=== PATIENT | male | born 1980 | race Caucasian/White ===

== ENCOUNTER 2021-05-01 15:47 | Inpatient (IN) ==
[2021-05-01] MEDS ORDERED: Ondansetron 4 MG/2 ML VIAL IVP STA (16:19)
[2021-05-01] MEDS ORDERED: 0.9 % Sodium Chloride 500 ML IVC STA (16:19)
[2021-05-01 17:04] LABS: INR 3.1; Prothrombin Time 34.5 Seconds (9.4-12.1)
[2021-05-01 17:06] LABS: Activated Partial Thrombo Time 29.7 Seconds (26.0-36.0)
[2021-05-01 17:19] LABS: Alanine Aminotransferase 68 Units/L (7-52); Albumin/Globulin Ratio 1.7 (1.1-2.2); Alkaline Phosphatase 87 Units/L (34-104); Aspartate Amino Transferase 110 Units/L (13-39); BUN/Creatinine Ratio 24 (6-26); Bilirubin,Direct 1.5 mg/dL (0.0-0.2); Bilirubin,Indirect 1.5 mg/dL (0.0-1.0); Blood Urea Nitrogen 33 mg/dL (6-20); Calcium 7.7 mg/dL (8.6-10.3); Carbon Dioxide 18 mEq/L (23-29); Chloride 92 mEq/L (98-107); Globulin 1.8 g/dL (2.4-3.5); Glucose 142 mg/dL (70-105); Lipase 63 Units/L (11-82); Osmolality,Calculated 286 (280-300); Potassium 3.3 mEq/L (3.5-5.1); Sodium 133 mEq/L (136-145); Total Protein 4.8 g/dL (6.4-8.9); eGFR For African Americans > 60 (> 60); eGFR For Non-African Americans 57 (> 60)
[2021-05-01 17:33] LABS: Bacteria,Urine Few per hpf (None-Few); Bilirubin,Urine Negative (Negative); Blood,Urine Negative (Negative); Clarity,Urine Turbid (Clear); Color,Urine Yellow (Yellow); Glucose,Urine (UA) 30 mg/dL (Normal); Hyaline Casts,Urine Many per lpf (None Seen); Ketones,Urine 10 mg/dL (Negative); Leukocyte Esterase,Urine Negative (Negative); Mucus,Urine Few per lpf (None-Few); Nitrite,Urine Negative (Negative); Protein,Urine 30 mg/dL (Neg-Trace); RBC,Urine 0-3 per hpf (0-3); Specific Gravity,Urine 1.018 (1.010-1.025); Squamous Epithelial Cell,Urine Few per hpf (None-Few); Urobilinogen,Urine Normal (Normal)
[2021-05-01 17:47] LABS: Troponin I < 0.03 ng/mL (< 0.04)
[2021-05-01] MEDS ORDERED: Magnesium Sulfate 1 GM/102 ML PIGGYBACK IVPB ONE (17:51)
[2021-05-01] MEDS ORDERED: Isovue-370 500 ML BOTTLE IVP ONE (17:52)
[2021-05-01 18:14] LABS: Basophils % 0.1 %; Eosinophils % 0.1 %; Immature Granulocytes % 1.5 % (0-4); Immature Platelets 10.1 % (1.1-6.1); Lymphocytes # 1.5 K/mcL (0.6-4.6); Mean Corpuscular HGB Conc 27.4 g/dL (31.6-35.5); Mean Corpuscular Volume 73.1 fL (83.0-100.0); Mean Platelet Volume 10.9 fL (9.4-12.4); Monocytes # 1.1 K/mcL (0.0-1.3); Monocytes % 11.2 %; Neutrophils # 7.1 K/mcL (1.6-8.9); Nucleated Red Blood Cells 1.1 /100 WBC (0); Platelet Count 128 K/mcL (140-400); Red Cell Distribution Width 20.3 % (11.5-14.5); Segmented Neutrophils % 72.1 %; White Blood Count 9.9 K/mcL (4.3-11.1)
[2021-05-01 18:28] LABS: Hematocrit 11.7 % (37.5-50.1); Hemoglobin 3.2 g/dL (12.9-16.9)
[2021-05-01 18:39] LABS: Anisocytosis 2+ (Not Present); Hypochromasia Present (Not Present); Platelet Estimate Slight Decrease (Normal); Poikilocytosis 3+ (Not Present)
[2021-05-01] MEDS ORDERED: cefTRIAXone 1,000 MG in Water for inj. (sterile) 10 ML IVP STA (19:22)
[2021-05-01] MEDS ORDERED: Naloxone 0.4 MG/ML INJ IVP PRN (19:33)
[2021-05-01] MEDS ORDERED: Ondansetron 4 MG/2 ML VIAL IVP PRN (19:33)
[2021-05-01] MEDS ORDERED: Pantoprazole 80 MG in 0.9 % Sodium Chloride 50 ML IVPB ONE (21:23)
[2021-05-01] MEDS: Calcium Gluconate 1gm/50mL 1 GM/50 ML BAG IVPB SCH ×2 (22:09→23:16)
[2021-05-01 22:27] LABS: Eosinophils % 0.1 %; Immature Granulocytes % 1.2 % (0-4); Lymphocytes # 1.9 K/mcL (0.6-4.6); Lymphocytes % 19.7 %; Mean Corpuscular HGB Conc 29.5 g/dL (31.6-35.5); Mean Corpuscular Hemoglobin 22.4 pg (28.0-33.3); Mean Corpuscular Volume 75.9 fL (83.0-100.0); Mean Platelet Volume 11.6 fL (9.4-12.4); Monocytes % 10.8 %; Neutrophils # 6.5 K/mcL (1.6-8.9); Nucleated Red Blood Cells 0.9 /100 WBC (0); Platelet Count 106 K/mcL (140-400); Red Blood Count 1.74 M/mcL (4.19-5.50); Red Cell Distribution Width 23.5 % (11.5-14.5); Segmented Neutrophils % 68.2 %; White Blood Count 9.5 K/mcL (4.3-11.1)
[2021-05-01 22:32] LABS: Hematocrit 13.2 % (37.5-50.1); Hemoglobin 3.9 g/dL (12.9-16.9)
[2021-05-01 22:35] LABS: Amphetamine Screen,Urine Negative ng/mL (Cutoff=1000); Barbiturate Screen,Urine Negative ng/mL (Cutoff=200); Benzodiazepines Screen,Urine Negative ng/mL (Cutoff=200); Cannabinoid Screen,Urine Negative ng/mL (Cutoff = 50); Cocaine Screen,Urine Negative ng/mL (Cutoff= 300); Opiate Screen,Urine Negative ng/mL (Cutoff=300); Phencyclidine Screen,Urine Negative ng/mL (Cutoff=25)
[2021-05-01 22:51] LABS: Polychromasia 1+ (Not Present)
[2021-05-01] MEDS: Piperacillin/Tazobactam 3.375 GM in 0.9 % Sodium Chloride Mini Bag 100 ML IVPB SCH (23:44)
[2021-05-01] MEDS ORDERED: *HR* LORazepam 2 MG/ML VIAL IVP PRN ×2 (23:49)
[2021-05-02 02:07] LABS: Basophils % 0.1 %; Eosinophils % 0.3 %; Hematocrit 16.9 % (37.5-50.1); Immature Granulocytes % 0.9 % (0-4); Immature Platelets 7.5 % (1.1-6.1); Lymphocytes # 1.4 K/mcL (0.6-4.6); Lymphocytes % 19.8 %; Mean Corpuscular HGB Conc 31.4 g/dL (31.6-35.5); Mean Corpuscular Hemoglobin 24.4 pg (28.0-33.3); Mean Corpuscular Volume 77.9 fL (83.0-100.0); Mean Platelet Volume 11.7 fL (9.4-12.4); Monocytes % 14.4 %; Neutrophils # 4.4 K/mcL (1.6-8.9); Nucleated Red Blood Cells 1.2 /100 WBC (0); Red Blood Count 2.17 M/mcL (4.19-5.50); Segmented Neutrophils % 64.5 %; White Blood Count 6.8 K/mcL (4.3-11.1)
[2021-05-02 02:08] LABS: Platelet Count 78 K/mcL (140-400)
[2021-05-02 02:11] LABS: Hemoglobin 5.3 g/dL (12.9-16.9)
[2021-05-02] MEDS ORDERED: Dexmedetomidine HCl 400 MCG/100 ML MLS IVC ONE (02:18)
[2021-05-02 02:27] LABS: Anisocytosis 2+ (Not Present); Platelet Estimate Decreased (Normal); Poikilocytosis 1+ (Not Present)
[2021-05-02] MEDS: Dexmedetomidine HCl 400 MCG/100 ML MLS IVC SCH ×3 (02:30→21:21)
[2021-05-02] MEDS ORDERED: 0.9 % Sodium Chloride 250 ML ONE ×3 (03:09→11:00)
[2021-05-02] MEDS ORDERED: Pantoprazole 40 MG VIAL IVP SCH (06:00)
[2021-05-02 06:17] LABS: Immature Reticulocyte % 20.7 % (11.0-38.0); Retculocyte # 0.07 M/mcL (0.05-0.10); Reticulocyte % 3.3 % (1.6-2.8)
[2021-05-02] MEDS ORDERED: 0.9 % Sodium Chloride 500 ML ONE ×2 (06:18→09:11)
[2021-05-02] MEDS ORDERED: 0.9 % Sodium Chloride 500 ML IVC ONE (06:30)
[2021-05-02 06:34] LABS: VBG Ionized Calcium 0.96 mmol/L (1.15-1.35)
[2021-05-02 06:38] LABS: INR 2.5; Prothrombin Time 27.7 Seconds (9.4-12.1)
[2021-05-02 06:42] LABS: Alanine Aminotransferase 93 Units/L (7-52); Albumin 2.3 g/dL (3.5-5.7); Albumin/Globulin Ratio 1.8 (1.1-2.2); Alkaline Phosphatase 65 Units/L (34-104); Aspartate Amino Transferase 220 Units/L (13-39); BUN/Creatinine Ratio 37 (6-26); Bilirubin,Total 2.7 mg/dL (0.3-1.0); Blood Urea Nitrogen 47 mg/dL (6-20); Calcium 6.4 mg/dL (8.6-10.3); Carbon Dioxide 28 mEq/L (23-29); Chloride 97 mEq/L (98-107); Cholesterol 56 mg/dL (< 200); Globulin 1.3 g/dL (2.4-3.5); Glucose 128 mg/dL (70-105); HDL Cholesterol 14 mg/dL (40-59); LDL Cholesterol,Calculated 32 mg/dL (< 100); Magnesium 1.6 mg/dL (1.6-2.6); Osmolality,Calculated 294 (280-300); Phosphorous 5.5 mg/dL (2.7-4.5); Potassium 3.5 mEq/L (3.5-5.1); Sodium 135 mEq/L (136-145); Total Protein 3.6 g/dL (6.4-8.9); Triglycerides 51 mg/dL (< 150); eGFR For African Americans > 60 (> 60); eGFR For Non-African Americans > 60 (> 60)
[2021-05-02 06:59] LABS: Ferritin < 8 ng/mL (20-250); Iron < 10 mcg/dL (65-175); Lactate Dehydrogenase 315 Units/L (140-271); Transferrin 221 mg/dL (203-362)
[2021-05-02 07:03] LABS: Folate 14.1 ng/mL (3.0-16.0)
[2021-05-02] MEDS: Calcium Gluconate 1gm/50mL 1 GM/50 ML BAG IVPB PRN ×2 (07:15→08:15)
[2021-05-02] MEDS ORDERED: Octreotide 400 MCG in 0.9 % Sodium Chloride 100 ML IVC SCH (07:45)
[2021-05-02] MEDS ORDERED: Pantoprazole 40 MG in 0.9 % Sodium Chloride Mini Bag 100 ML IVC SCH (07:45)
[2021-05-02 07:49] LABS: Hepatitis B Surface Antigen Nonreactive (Nonreactive)
[2021-05-02] MEDS: Piperacillin/Tazobactam 3.375 GM in 0.9 % Sodium Chloride Mini Bag 100 ML IVPB SCH (08:15)
[2021-05-02 08:18] LABS: Hepatitis A Antibody IgM Nonreactive (Nonreactive); Hepatitis B Core IgM Nonreactive (Nonreactive); Hepatitis C Virus Antibody Nonreactive (Nonreactive)
[2021-05-02] MEDS: Metoclopramide 20 MG in 0.9 % Sodium Chloride 50 ML IVPB SCH ×3 (08:45→22:42)
[2021-05-02 09:12] LABS: Basophils % 0.2 %; Eosinophils # 0.1 K/mcL (0.0-0.6); Eosinophils % 1.8 %; Hematocrit 20.2 % (37.5-50.1); Hemoglobin 6.5 g/dL (12.9-16.9); Immature Granulocytes % 0.4 % (0-4); Immature Platelets 8.5 % (1.1-6.1); Lymphocytes # 1.4 K/mcL (0.6-4.6); Lymphocytes % 30.6 %; Mean Corpuscular HGB Conc 32.2 g/dL (31.6-35.5); Mean Corpuscular Hemoglobin 25.5 pg (28.0-33.3); Mean Corpuscular Volume 79.2 fL (83.0-100.0); Monocytes # 0.7 K/mcL (0.0-1.3); Monocytes % 15.4 %; Neutrophils # 2.3 K/mcL (1.6-8.9); Red Blood Count 2.55 M/mcL (4.19-5.50); Red Cell Distribution Width 20.3 % (11.5-14.5); Segmented Neutrophils % 51.6 %; White Blood Count 4.5 K/mcL (4.3-11.1)
[2021-05-02 09:36] LABS: Platelet Count 62 K/mcL (140-400)
[2021-05-02] MEDS ORDERED: 0.9 % Sodium Chloride 250 ML IVC SCH (10:45)
[2021-05-02 11:04] LABS: VBG Ionized Calcium 1.03 mmol/L (1.15-1.35)
[2021-05-02] MEDS ORDERED: *HR* Propofol 200 MG/20 ML VIAL IVP ONE (11:13)
[2021-05-02] MEDS ORDERED: Lidocaine -MPF 2% 5 ML VIAL ONE (11:21)
[2021-05-02] MEDS ORDERED: *HR* Succinylcholine 200 MG/10 ML VIAL IVP ONE (11:36)
[2021-05-02] MEDS ORDERED: *HR* FentaNYL (PF) 100 MCG/2 ML VIAL IVP PRN (11:38)
[2021-05-02] MEDS ORDERED: Nitroglycerin 0.4 MG TAB.SUBL SL PRN (11:38)
[2021-05-02] MEDS ORDERED: Albuterol 2.5 MG/3 ML NEBULIZER IH PRN (11:38)
[2021-05-02] MEDS ORDERED: Naloxone 0.4 MG/ML INJ IVP PRN (11:38)
[2021-05-02] MEDS ORDERED: Ondansetron 4 MG/2 ML VIAL IVP PRN (11:38)
[2021-05-02 11:40] LABS: Alanine Aminotransferase 97 Units/L (7-52); Albumin 2.4 g/dL (3.5-5.7); Albumin/Globulin Ratio 1.8 (1.1-2.2); Alkaline Phosphatase 67 Units/L (34-104); Aspartate Amino Transferase 224 Units/L (13-39); BUN/Creatinine Ratio 43 (6-26); Bilirubin,Total 3.3 mg/dL (0.3-1.0); Blood Urea Nitrogen 47 mg/dL (6-20); Calcium 6.7 mg/dL (8.6-10.3); Carbon Dioxide 27 mEq/L (23-29); Chloride 100 mEq/L (98-107); Globulin 1.3 g/dL (2.4-3.5); Glucose 100 mg/dL (70-105); Osmolality,Calculated 292 (280-300); Potassium 3.6 mEq/L (3.5-5.1); Sodium 135 mEq/L (136-145); Total Protein 3.7 g/dL (6.4-8.9); eGFR For African Americans > 60 (> 60); eGFR For Non-African Americans > 60 (> 60)
[2021-05-02] MEDS: Calcium Gluconate 1gm/50mL 1 GM/50 ML BAG IVPB SCH ×4 (12:53→20:15)
[2021-05-02 14:46] LABS: Adenovirus Not Detected (Not Detect); Bordetella Pertussis Not Detected (Not Detect); Chlamydophila pneumoniae Not Detected (Not Detect); Coronavirus 229E Not Detected (Not Detect); Coronavirus HKU1 Not Detected (Not Detect); Coronavirus NL63 Not Detected (Not Detect); Coronavirus OC43 Not Detected (Not Detect); Human Metapneumovirus Not Detected (Not Detect); Human Rhinovirus/Enterovirus Not Detected (Not Detect); Influenza A Subtype 2009 H1 Not Detected (Not Detect); Influenza B Not Detected (Not Detect); Mycoplasma pneumoniae Not Detected (Not Detect); Parainfluenza Virus 1 Not Detected (Not Detect); Parainfluenza Virus 2 Not Detected (Not Detect); Parainfluenza Virus 3 Not Detected (Not Detect); Parainfluenza Virus 4 Not Detected (Not Detect); Respiratory Syncytial Virus Not Detected (Not Detect); SARS-CoV-2 Not Detected (Not Detect)
[2021-05-02] MEDS: Pantoprazole 40 MG VIAL IVP SCH (17:45)
[2021-05-02] MEDS ORDERED: Thiamine (B-1) 100 MG, Folic Acid 1 MG, MVI, adult with vitamin K 10 ML in 0.9 % Sodi... IVPB SCH (18:00)
[2021-05-02 18:06] LABS: Hemoglobin 6.8 g/dL (12.9-16.9)
[2021-05-02 18:08] LABS: Hematocrit 20.8 % (37.5-50.1); Immature Platelets 7.4 % (1.1-6.1); Mean Corpuscular HGB Conc 32.7 g/dL (31.6-35.5); Mean Corpuscular Volume 79.4 fL (83.0-100.0); Mean Platelet Volume 10.1 fL (9.4-12.4); Red Blood Count 2.62 M/mcL (4.19-5.50); Red Cell Distribution Width 19.5 % (11.5-14.5); White Blood Count 2.9 K/mcL (4.3-11.1)
[2021-05-02 18:14] LABS: VBG Ionized Calcium 1.02 mmol/L (1.15-1.35)
[2021-05-02 18:16] LABS: INR 1.6; Prothrombin Time 18.7 Seconds (9.4-12.1)
[2021-05-02 18:27] LABS: Alanine Aminotransferase 108 Units/L (7-52); Albumin 2.9 g/dL (3.5-5.7); Albumin/Globulin Ratio 1.9 (1.1-2.2); Alkaline Phosphatase 70 Units/L (34-104); Aspartate Amino Transferase 238 Units/L (13-39); BUN/Creatinine Ratio 56 (6-26); Bilirubin,Total 4.3 mg/dL (0.3-1.0); Blood Urea Nitrogen 45 mg/dL (6-20); Calcium 7.4 mg/dL (8.6-10.3); Carbon Dioxide 28 mEq/L (23-29); Chloride 99 mEq/L (98-107); Globulin 1.5 g/dL (2.4-3.5); Glucose 126 mg/dL (70-105); Magnesium 2.2 mg/dL (1.6-2.6); Osmolality,Calculated 293 (280-300); Phosphorous 3.6 mg/dL (2.7-4.5); Potassium 3.4 mEq/L (3.5-5.1); Sodium 135 mEq/L (136-145); Total Protein 4.4 g/dL (6.4-8.9); eGFR For African Americans > 60 (> 60); eGFR For Non-African Americans > 60 (> 60)
[2021-05-02 22:20] LABS: Hematocrit 21.7 % (37.5-50.1)
[2021-05-03 04:50] LABS: Hemoglobin 6.7 g/dL (12.9-16.9); Nucleated Red Blood Cells 1.7 /100 WBC (0)
[2021-05-03 04:52] LABS: Eosinophils % 0.2 %; Hematocrit 20.7 % (37.5-50.1); Immature Granulocytes % 0.6 % (0-4); Immature Platelets 5.7 % (1.1-6.1); Lymphocytes # 0.6 K/mcL (0.6-4.6); Lymphocytes % 13.1 %; Mean Corpuscular HGB Conc 32.4 g/dL (31.6-35.5); Mean Corpuscular Hemoglobin 25.4 pg (28.0-33.3); Mean Corpuscular Volume 78.4 fL (83.0-100.0); Mean Platelet Volume 10.3 fL (9.4-12.4); Monocytes # 0.5 K/mcL (0.0-1.3); Monocytes % 11.4 %; Neutrophils # 3.5 K/mcL (1.6-8.9); Red Blood Count 2.64 M/mcL (4.19-5.50); Red Cell Distribution Width 19.4 % (11.5-14.5); Segmented Neutrophils % 74.7 %; White Blood Count 4.7 K/mcL (4.3-11.1)
[2021-05-03 04:53] LABS: Platelet Count 78 K/mcL (140-400)
[2021-05-03 05:11] LABS: BUN/Creatinine Ratio 50 (6-26); Blood Urea Nitrogen 30 mg/dL (6-20); Calcium 7.4 mg/dL (8.6-10.3); Carbon Dioxide 27 mEq/L (23-29); Chloride 100 mEq/L (98-107); Glucose 104 mg/dL (70-105); Osmolality,Calculated 282 (280-300); Potassium 3.5 mEq/L (3.5-5.1); Sodium 133 mEq/L (136-145); eGFR For African Americans > 60 (> 60); eGFR For Non-African Americans > 60 (> 60)
[2021-05-03] MEDS ORDERED: SODIUM CHLORIDE/NAHCO3/KCL/PEG 4,000 ML SOLN.RECON PO ONE (05:42)
[2021-05-03] MEDS: Dexmedetomidine HCl 400 MCG/100 ML MLS IVC SCH (06:51)
[2021-05-03] MEDS: Pantoprazole 40 MG VIAL IVP SCH ×2 (06:57→16:38)
[2021-05-03] MEDS ORDERED: Calcium Gluconate 1gm/50mL 1 GM/50 ML BAG IVPB ONE (07:43)
[2021-05-03] MEDS: Metoclopramide 20 MG in 0.9 % Sodium Chloride 50 ML IVPB SCH (08:04)
[2021-05-03] MEDS ORDERED: cefTRIAXone 1,000 MG in Water for inj. (sterile) 10 ML IVP SCH (09:00)
[2021-05-03 12:13] LABS: Hemoglobin 8.1 g/dL (12.9-16.9)
[2021-05-03] MEDS ORDERED: 0.9 % Sodium Chloride 250 ML IVC SCH (13:10)
[2021-05-03] MEDS ORDERED: *HR* LORazepam 2 MG/ML VIAL IVP PRN ×2 (13:10)
[2021-05-03] MEDS ORDERED: Naloxone 0.4 MG/ML INJ IVP PRN (13:10)
[2021-05-03] MEDS ORDERED: Nitroglycerin 0.4 MG TAB.SUBL SL PRN (13:10)
[2021-05-03] MEDS ORDERED: Thiamine (B-1) 100 MG, Folic Acid 1 MG, MVI, adult with vitamin K 10 ML in 0.9 % Sodi... IVPB SCH (18:00)
[2021-05-04] MEDS: Pantoprazole 40 MG VIAL IVP SCH (05:22)
[2021-05-04] MEDS ORDERED: Nitroglycerin 0.4 MG TAB.SUBL SL PRN ×3 (08:34→13:34)
[2021-05-04] MEDS ORDERED: Naloxone 0.4 MG/ML INJ IVP PRN ×3 (08:34→13:34)
[2021-05-04] MEDS ORDERED: 0.9 % Sodium Chloride 250 ML IVC SCH ×2 (08:34→11:53)
[2021-05-04] MEDS ORDERED: *HR* LORazepam 2 MG/ML VIAL IVP PRN ×6 (08:34→13:34)
[2021-05-04] MEDS ORDERED: traZODone 50 MG TABLET PO PRN ×3 (08:34→13:34)
[2021-05-04] MEDS ORDERED: Lidocaine -MPF 2% 5 ML VIAL ONE (08:58)
[2021-05-04] MEDS ORDERED: Nicotine 21 MG PATCH.TD24 TD SCH ×2 (09:00)
[2021-05-04] MEDS ORDERED: cefTRIAXone 1,000 MG in Water for inj. (sterile) 10 ML IVP SCH (09:00)
[2021-05-04 11:04] LABS: Eosinophils % 1.3 %; Hematocrit 23.6 % (37.5-50.1); Hemoglobin 7.6 g/dL (12.9-16.9); Immature Granulocytes % 0.3 % (0-4); Lymphocytes % 31.1 %; Mean Corpuscular HGB Conc 32.2 g/dL (31.6-35.5); Mean Corpuscular Hemoglobin 25.9 pg (28.0-33.3); Mean Corpuscular Volume 80.5 fL (83.0-100.0); Mean Platelet Volume 10.1 fL (9.4-12.4); Monocytes # 0.5 K/mcL (0.0-1.3); Monocytes % 16.4 %; Neutrophils # 1.6 K/mcL (1.6-8.9); Nucleated Red Blood Cells 1.6 /100 WBC (0); Red Blood Count 2.93 M/mcL (4.19-5.50); Red Cell Distribution Width 19.1 % (11.5-14.5); Segmented Neutrophils % 50.9 %; White Blood Count 3.1 K/mcL (4.3-11.1)
[2021-05-04 11:05] LABS: Platelet Count 66 K/mcL (140-400)
[2021-05-04 11:23] LABS: BUN/Creatinine Ratio 25 (6-26); Blood Urea Nitrogen 14 mg/dL (6-20); Calcium 7.1 mg/dL (8.6-10.3); Carbon Dioxide 27 mEq/L (23-29); Chloride 99 mEq/L (98-107); Glucose 91 mg/dL (70-105); Osmolality,Calculated 272 (280-300); Sodium 131 mEq/L (136-145); eGFR For African Americans > 60 (> 60); eGFR For Non-African Americans > 60 (> 60)
[2021-05-04 11:38] LABS: Platelet Estimate Decreased (Normal)
[2021-05-04 11:39] LABS: Anisocytosis 1+ (Not Present)
[2021-05-04] MEDS ORDERED: Calcium Gluconate 1gm/50mL 1 GM/50 ML BAG IVPB PRN (11:57)
[2021-05-04] MEDS ORDERED: cefTRIAXone 1,000 MG in Water for inj. (sterile) 10 ML IVP ONE ×2 (13:29→13:34)
[2021-05-04] MEDS ORDERED: Pantoprazole 40 MG VIAL IVP SCH ×2 (18:00)
[2021-05-04] MEDS ORDERED: Thiamine (B-1) 100 MG, Folic Acid 1 MG, MVI, adult with vitamin K 10 ML in 0.9 % Sodi... IVPB SCH ×2 (18:00)
[2021-05-05 05:42] LABS: Hematocrit 23.3 % (37.5-50.1); Hemoglobin 7.5 g/dL (12.9-16.9); Mean Corpuscular HGB Conc 32.2 g/dL (31.6-35.5); Mean Corpuscular Hemoglobin 25.7 pg (28.0-33.3); Mean Corpuscular Volume 79.8 fL (83.0-100.0); Mean Platelet Volume 9.5 fL (9.4-12.4); Red Blood Count 2.92 M/mcL (4.19-5.50); Red Cell Distribution Width 19.1 % (11.5-14.5); White Blood Count 2.5 K/mcL (4.3-11.1)
[2021-05-05 05:44] LABS: Platelet Count 59 K/mcL (140-400)
[2021-05-05 06:08] LABS: BUN/Creatinine Ratio 23 (6-26); Blood Urea Nitrogen 11 mg/dL (6-20); Calcium 7.2 mg/dL (8.6-10.3); Carbon Dioxide 25 mEq/L (23-29); Chloride 103 mEq/L (98-107); Glucose 100 mg/dL (70-105); Osmolality,Calculated 275 (280-300); Potassium 3.2 mEq/L (3.5-5.1); Sodium 133 mEq/L (136-145); eGFR For African Americans > 60 (> 60); eGFR For Non-African Americans > 60 (> 60)
[2021-05-05] MEDS ORDERED: Iron Sucrose Complex 400 MG in 0.9 % Sodium Chloride 250 ML IVPB ONE (08:35)
[2021-05-05] MEDS: cefTRIAXone 2,000 MG in Water for inj. (sterile) 20 ML IVP SCH (08:45)
[2021-05-05] MEDS: Nicotine 21 MG PATCH.TD24 TD SCH (08:46)
[2021-05-05] MEDS: Calcium Gluconate 1gm/50mL 1 GM/50 ML BAG IVPB SCH ×2 (08:46→09:35)
[2021-05-05] MEDS ORDERED: Nicotine 21 MG PATCH.TD24 TD SCH (09:00)
[2021-05-05] MEDS ORDERED: cefTRIAXone 1,000 MG in Water for inj. (sterile) 10 ML IVP SCH (09:00)
[2021-05-05] MEDS ORDERED: cefTRIAXone 2,000 MG in Water for inj. (sterile) 20 ML IVP SCH (09:00)
[2021-05-05 13:24] LABS: Hematocrit 24.2 % (37.5-50.1); Hemoglobin 7.6 g/dL (12.9-16.9)
[2021-05-05 17:22] LABS: Immature Reticulocyte % 32.1 % (11.0-38.0); Retculocyte # 0.12 M/mcL (0.05-0.10); Reticulocyte % 4.2 % (1.6-2.8)
[2021-05-05 17:24] LABS: Hemoglobin 7.7 g/dL (12.9-16.9)
[2021-05-06 07:12] LABS: Eosinophils # 0.1 K/mcL (0.0-0.6); Hematocrit 21.7 % (37.5-50.1); Immature Platelets 4.8 % (1.1-6.1); Mean Corpuscular HGB Conc 32.3 g/dL (31.6-35.5); Mean Corpuscular Hemoglobin 25.9 pg (28.0-33.3); Mean Corpuscular Volume 80.4 fL (83.0-100.0); Mean Platelet Volume 10.7 fL (9.4-12.4); Red Cell Distribution Width 19.9 % (11.5-14.5); White Blood Count 2.4 K/mcL (4.3-11.1)
[2021-05-06 07:14] LABS: Platelet Count 67 K/mcL (140-400)
[2021-05-06 07:18] LABS: INR 1.7; Prothrombin Time 19.1 Seconds (9.4-12.1)
[2021-05-06 07:28] LABS: Alanine Aminotransferase 117 Units/L (7-52); Albumin 2.7 g/dL (3.5-5.7); Albumin/Globulin Ratio 1.6 (1.1-2.2); Alkaline Phosphatase 99 Units/L (34-104); Aspartate Amino Transferase 93 Units/L (13-39); BUN/Creatinine Ratio 18 (6-26); Bilirubin,Total 2.3 mg/dL (0.3-1.0); Blood Urea Nitrogen 8 mg/dL (6-20); Calcium 7.3 mg/dL (8.6-10.3); Carbon Dioxide 24 mEq/L (23-29); Chloride 106 mEq/L (98-107); Globulin 1.7 g/dL (2.4-3.5); Glucose 82 mg/dL (70-105); Osmolality,Calculated 275 (280-300); Potassium 3.6 mEq/L (3.5-5.1); Sodium 134 mEq/L (136-145); Total Protein 4.4 g/dL (6.4-8.9); eGFR For African Americans > 60 (> 60); eGFR For Non-African Americans > 60 (> 60)
[2021-05-06 09:18] LABS: Lymphocytes # 0.8 K/mcL (0.6-4.6); Monocytes # 0.4 K/mcL (0.0-1.3); Neutrophils # 1.1 K/mcL (1.6-8.9)
[2021-05-06 09:19] LABS: Anisocytosis 1+ (Not Present); Hypochromasia Present (Not Present); Platelet Estimate Decreased (Normal); Poikilocytosis 1+ (Not Present); Polychromasia 1+ (Not Present)
[2021-05-06] MEDS: Nicotine 21 MG PATCH.TD24 TD SCH (09:42)
[2021-05-06] MEDS: cefTRIAXone 2,000 MG in Water for inj. (sterile) 20 ML IVP SCH (09:43)
[2021-05-06] MEDS ORDERED: 0.9 % Sodium Chloride 250 ML ONE (16:25)
[2021-05-06 21:20] LABS: Hematocrit 28.7 % (37.5-50.1); Hemoglobin 8.9 g/dL (12.9-16.9)
[2021-05-07 02:37] LABS: Mean Corpuscular Volume 83.1 fL (83.0-100.0)
[2021-05-07 02:39] LABS: Eosinophils # 0.1 K/mcL (0.0-0.6); Eosinophils % 3.4 %; Hematocrit 27.6 % (37.5-50.1); Hemoglobin 8.7 g/dL (12.9-16.9); Immature Granulocytes % 0.3 % (0-4); Immature Platelets 3.3 % (1.1-6.1); Lymphocytes % 38.3 %; Mean Corpuscular HGB Conc 31.5 g/dL (31.6-35.5); Mean Corpuscular Hemoglobin 26.2 pg (28.0-33.3); Mean Platelet Volume 10.6 fL (9.4-12.4); Monocytes # 0.6 K/mcL (0.0-1.3); Monocytes % 19.8 %; Neutrophils # 1.1 K/mcL (1.6-8.9); Nucleated Red Blood Cells 0.7 /100 WBC (0); Red Blood Count 3.32 M/mcL (4.19-5.50); Red Cell Distribution Width 20.2 % (11.5-14.5); Segmented Neutrophils % 37.2 %
[2021-05-07 02:41] LABS: Lymphocytes # 1.2 K/mcL (0.6-4.6); Platelet Count 67 K/mcL (140-400)
[2021-05-07 02:54] LABS: BUN/Creatinine Ratio 13 (6-26); Blood Urea Nitrogen 7 mg/dL (6-20); Carbon Dioxide 22 mEq/L (23-29); Chloride 106 mEq/L (98-107); Glucose 94 mg/dL (70-105); Osmolality,Calculated 280 (280-300); Potassium 3.4 mEq/L (3.5-5.1); Sodium 136 mEq/L (136-145); eGFR For African Americans > 60 (> 60); eGFR For Non-African Americans > 60 (> 60)
[2021-05-07] MEDS: Nicotine 21 MG PATCH.TD24 TD SCH (08:07)
[2021-05-07] MEDS: cefTRIAXone 2,000 MG in Water for inj. (sterile) 20 ML IVP SCH (08:08)
[2021-05-07 09:18] LABS: Hematocrit 25.7 % (37.5-50.1); Hemoglobin 7.9 g/dL (12.9-16.9)
[2021-05-07] MEDS ORDERED: Lactulose Oral Soln 20 GM/30 ML UDC PO PRN (10:55)
[2021-05-07 16:12] VITALS: BP 119/63; PULSE 80; TEMP 97.9; O2SAT 99
[2021-05-07 17:14] LABS: Hematocrit 26.1 % (37.5-50.1)
== END 2021-05-07 18:27 | disposition home or self-care (01) | DRG 254 ==
LOC: EMEROOARM 15:47 → ICNU 15:47 → 3ANU 05-05 20:22
PROVIDERS: ADMIT Internal Medicine; ATTEND Internal Medicine

== ENCOUNTER 2021-05-12 03:56 | Observation (INO) ==
[2021-05-12 04:50] LABS: Basophils # 0.1 K/mcL (0.0-0.2); Basophils % 1.3 %; Eosinophils # 0.2 K/mcL (0.0-0.6); Eosinophils % 3.4 %; Hematocrit 32.3 % (37.5-50.1); Immature Granulocytes % 0.4 % (0-4); Immature Platelets 2.3 % (1.1-6.1); Lymphocytes % 42.9 %; Mean Corpuscular Hemoglobin 25.7 pg (28.0-33.3); Mean Platelet Volume 10.1 fL (9.4-12.4); Monocytes # 0.4 K/mcL (0.0-1.3); Monocytes % 9.2 %; Red Blood Count 3.89 M/mcL (4.19-5.50); Red Cell Distribution Width 20.9 % (11.5-14.5); Segmented Neutrophils % 42.8 %; White Blood Count 4.7 K/mcL (4.3-11.1)
[2021-05-12 04:52] LABS: Platelet Count 67 K/mcL (140-400)
[2021-05-12 04:56] LABS: INR 1.4; Prothrombin Time 15.9 Seconds (9.4-12.1)
[2021-05-12 05:08] LABS: Alanine Aminotransferase 57 Units/L (7-52); Albumin 3.5 g/dL (3.5-5.7); Albumin/Globulin Ratio 1.4 (1.1-2.2); Alkaline Phosphatase 135 Units/L (34-104); Aspartate Amino Transferase 79 Units/L (13-39); BUN/Creatinine Ratio 13 (6-26); Bilirubin,Direct 0.7 mg/dL (0.0-0.2); Bilirubin,Total 1.7 mg/dL (0.3-1.0); Blood Urea Nitrogen 6 mg/dL (6-20); Calcium 7.9 mg/dL (8.6-10.3); Carbon Dioxide 26 mEq/L (23-29); Chloride 107 mEq/L (98-107); Globulin 2.5 g/dL (2.4-3.5); Glucose 100 mg/dL (70-105); Lipase 61 Units/L (11-82); Osmolality,Calculated 292 (280-300); Sodium 142 mEq/L (136-145); eGFR For African Americans > 60 (> 60); eGFR For Non-African Americans > 60 (> 60)
[2021-05-12] MEDS ORDERED: Furosemide 40 MG/4 ML VIAL IVP ONE (08:53)
[2021-05-12] MEDS ORDERED: Potassium Chloride Elixir 20 MEQ/15 ML UDC PO ONE (09:02)
[2021-05-12] MEDS ORDERED: Ondansetron 4 MG/2 ML VIAL IVP PRN (09:08)
[2021-05-12] MEDS ORDERED: Naloxone 0.4 MG/ML INJ IVP PRN (09:08)
[2021-05-12] MEDS ORDERED: Perflutren Lipid Microsphere 1.3 ML in 0.9 % Sodium Chloride 8.7 ML IVP PRN (09:10)
[2021-05-12] MEDS ORDERED: Lactulose Oral Soln 20 GM/30 ML UDC PO PRN (09:11)
[2021-05-12] MEDS ORDERED: traZODone 50 MG TABLET PO PRN (09:11)
[2021-05-12] MEDS ORDERED: *HR* LORazepam 2 MG/ML VIAL IVP PRN ×3 (09:32)
[2021-05-12] MEDS ORDERED: Folic Acid 1 MG TABLET PO SCH (09:45)
[2021-05-12] MEDS ORDERED: Nicotine 21 MG PATCH.TD24 TD SCH (09:45)
[2021-05-12] MEDS ORDERED: Thiamine (B-1) 100 MG TABLET PO SCH (09:45)
[2021-05-12] MEDS ORDERED: Vitamin B Complex/Vit C/Vit E 1 EACH TABLET PO SCH (09:45)
[2021-05-12 09:51] LABS: Bilirubin,Urine Negative (Negative); Blood,Urine Negative (Negative); Clarity,Urine Clear (Clear); Color,Urine Yellow (Yellow); Glucose,Urine (UA) Normal (Normal); Ketones,Urine Negative (Negative); Leukocyte Esterase,Urine Negative (Negative); Nitrite,Urine Negative (Negative); PH,Urine 6.5 pH Units (5.0-8.0); Protein,Urine Negative (Neg-Trace); Specific Gravity,Urine 1.014 (1.010-1.025); Urobilinogen,Urine Normal (Normal)
[2021-05-12 16:14] VITALS: BP 104/57; PULSE 91; TEMP 98.2; O2SAT 93
[2021-05-12] MEDS ORDERED: Furosemide 40 MG/4 ML VIAL IVP SCH (21:00)
== END 2021-05-12 16:19 | disposition left against medical advice (07) ==
LOC: 3ANU 03:56 → EMEROOARM 03:56 → 3ANU 10:44
PROVIDERS: ADMIT Family Medicine; ATTEND Family Medicine

== ENCOUNTER 2022-05-23 17:08 | Observation (INO) ==
[2022-05-23 18:23] LABS: Bilirubin,Urine Small (Negative); Blood,Urine Negative (Negative); Calcium Oxalate Crystals,Urine Present per hpf; Clarity,Urine Clear (Clear); Color,Urine Dark-Yellow (Yellow); Glucose,Urine (UA) Normal (Normal); Ketones,Urine Trace mg/dL (Negative); Leukocyte Esterase,Urine Negative (Negative); Mucus,Urine Many per lpf (None-Few); Nitrite,Urine Negative (Negative); PH,Urine 6.5 pH Units (5.0-8.0); Protein,Urine 50 mg/dL (Neg-Trace); Specific Gravity,Urine > 1.030 (1.010-1.025); Urobilinogen,Urine >=8.0 mg/dL (Normal)
[2022-05-23 18:28] LABS: BUN/Creatinine Ratio 15 (6-26); Blood Urea Nitrogen 8 mg/dL (6-20); Calcium 9.2 mg/dL (8.6-10.3); Carbon Dioxide 24 mEq/L (23-29); Chloride 101 mEq/L (98-107); Glucose 106 mg/dL (70-105); Osmolality,Calculated 277 (280-300); Potassium 3.5 mEq/L (3.5-5.1); Sodium 134 mEq/L (136-145)
[2022-05-23 18:40] LABS: Basophils # 0.1 K/mcL (0.0-0.2); Basophils % 0.7 %; Eosinophils # 0.2 K/mcL (0.0-0.6); Hematocrit 40.9 % (37.5-50.1); Hemoglobin 13.6 g/dL (12.9-16.9); Immature Granulocytes % 0.3 % (0-4); Lymphocytes # 1.7 K/mcL (0.6-4.6); Mean Corpuscular HGB Conc 33.3 g/dL (31.6-35.5); Mean Corpuscular Hemoglobin 27.2 pg (28.0-33.3); Mean Corpuscular Volume 81.8 fL (83.0-100.0); Mean Platelet Volume 10.7 fL (9.4-12.4); Monocytes # 0.5 K/mcL (0.0-1.3); Monocytes % 6.4 %; Neutrophils # 4.9 K/mcL (1.6-8.9); Platelet Count 103 K/mcL (140-400); Red Cell Distribution Width 14.4 % (11.5-14.5); Segmented Neutrophils % 66.6 %; White Blood Count 7.4 K/mcL (4.3-11.1)
[2022-05-23 19:23] LABS: Alanine Aminotransferase 36 Units/L (7-52); Albumin/Globulin Ratio 1.4 (1.1-2.2); Alkaline Phosphatase 132 Units/L (34-104); Aspartate Amino Transferase 64 Units/L (13-39); Bilirubin,Direct 0.7 mg/dL (0.0-0.2); Bilirubin,Indirect 1.4 mg/dL (0.0-1.0); Bilirubin,Total 2.1 mg/dL (0.3-1.0); Globulin 2.9 g/dL (2.4-3.5); Lipase 65 Units/L (11-82); Total Protein 6.9 g/dL (6.4-8.9)
[2022-05-23] MEDS ORDERED: 0.9 % Sodium Chloride 1,000 ML IVC ONE (19:33)
[2022-05-23] MEDS ORDERED: Pantoprazole 40 MG VIAL IVP ONE (19:33)
[2022-05-23] MEDS ORDERED: Ondansetron 4 MG/2 ML VIAL IVP ONE (19:35)
[2022-05-23] MEDS ORDERED: Iopamidol - 370 500 ML MLS IVP ONE (19:35)
[2022-05-23 20:35] LABS: Influenza A PCR Negative (Negative); Influenza B PCR Negative (Negative); Resp. Syncytial Virus PCR Negative (Negative)
[2022-05-23 20:36] LABS: SARS-CoV-2 by PCR (In House) Negative (Negative)
[2022-05-23] MEDS ORDERED: Naloxone 0.4 MG/ML INJ IVP PRN (21:33)
[2022-05-23] MEDS ORDERED: Ondansetron 4 MG/2 ML VIAL IVP PRN (21:33)
[2022-05-23] MEDS ORDERED: Melatonin 3 MG TABLET PO PRN (21:33)
[2022-05-23] MEDS ORDERED: Acetaminophen 325 MG TABLET PO PRN (21:33)
[2022-05-23] MEDS ORDERED: Octreotide 50 MCG/ML INJ IVP ONE (21:35)
[2022-05-23] MEDS ORDERED: cefTRIAXone 1,000 MG in Water for inj. (sterile) 10 ML IVP ONE (21:35)
[2022-05-23] MEDS: Octreotide 400 MCG in 0.9 % Sodium Chloride 100 ML IVC SCH (23:16)
[2022-05-24 03:32] LABS: Basophils % 0.8 %; Eosinophils # 0.1 K/mcL (0.0-0.6); Hematocrit 37.1 % (37.5-50.1); Hemoglobin 12.1 g/dL (12.9-16.9); Immature Granulocytes % 0.3 % (0-4); Immature Platelets 7.4 % (1.1-6.1); Lymphocytes # 1.4 K/mcL (0.6-4.6); Lymphocytes % 34.9 %; Mean Corpuscular HGB Conc 32.6 g/dL (31.6-35.5); Mean Corpuscular Hemoglobin 26.9 pg (28.0-33.3); Mean Corpuscular Volume 82.4 fL (83.0-100.0); Mean Platelet Volume 11.7 fL (9.4-12.4); Monocytes # 0.3 K/mcL (0.0-1.3); Monocytes % 8.3 %; Neutrophils # 2.1 K/mcL (1.6-8.9); Red Cell Distribution Width 14.4 % (11.5-14.5); Segmented Neutrophils % 52.7 %
[2022-05-24 03:38] LABS: INR 1.6; Platelet Count 78 K/mcL (140-400)
[2022-05-24 03:39] LABS: INR 1.6; Prothrombin Time 18.3 Seconds (9.4-12.1)
[2022-05-24 03:47] LABS: Alanine Aminotransferase 31 Units/L (7-52); Albumin 3.5 g/dL (3.5-5.7); Albumin/Globulin Ratio 1.4 (1.1-2.2); Alkaline Phosphatase 116 Units/L (34-104); Aspartate Amino Transferase 52 Units/L (13-39); BUN/Creatinine Ratio 17 (6-26); Bilirubin,Total 1.9 mg/dL (0.3-1.0); Blood Urea Nitrogen 8 mg/dL (6-20); Calcium 7.9 mg/dL (8.6-10.3); Carbon Dioxide 23 mEq/L (23-29); Chloride 103 mEq/L (98-107); Globulin 2.5 g/dL (2.4-3.5); Glucose 81 mg/dL (70-105); Magnesium 1.4 mg/dL (1.6-2.6); Osmolality,Calculated 279 (280-300); Potassium 3.6 mEq/L (3.5-5.1); Sodium 136 mEq/L (136-145)
[2022-05-24] MEDS ORDERED: Pantoprazole 40 MG VIAL IVP SCH (06:00)
[2022-05-24] MEDS: Octreotide 400 MCG in 0.9 % Sodium Chloride 100 ML IVC SCH (06:40)
[2022-05-24] MEDS ORDERED: cefTRIAXone 1,000 MG in Water for inj. (sterile) 10 ML IVP SCH (09:00)
[2022-05-24] MEDS ORDERED: Simethicone 40 MG/0.6 ML MLS ONE (09:03)
[2022-05-24] MEDS ORDERED: Lidocaine -MPF 2% 5 ML VIAL ONE (09:08)
[2022-05-24] MEDS ORDERED: *HR* Propofol 200 MG/20 ML VIAL IVP ONE ×3 (09:08→09:19)
[2022-05-24 10:01] VITALS: BP 115/64; PULSE 78; TEMP 98; O2SAT 93
== END 2022-05-24 12:36 | disposition home or self-care (01) ==
LOC: 3ANU 17:08 → EMEROOARM 17:08 → SUATTDRO 21:46 → 3ANU 22:35
PROVIDERS: ADMIT Internal Medicine; ATTEND Internal Medicine